=== PATIENT | female | born 1955 | race Two or more races ===

== ENCOUNTER 2023-07-09 16:41 | Inpatient (IN) | payer MEDICARE, MEDICAID ==
[~2023-07-09] VITALS: Ht 157.5 cm; Wt 71.1 kg
[2023-07-09 18:31] LABS: Basophils # (auto) 0.1 10 ^3/uL (0-0.2); Eosinophils # (auto) 0.7 10 ^3/uL (0-0.8); Hemoglobin 9.1 g/dL (12.2-16.2); Mean Corpuscular Hgb Conc. 32.4 g/dL (32.0-36.0); Monocytes # (auto) 0.9 10 ^3/uL (0-1.3); White Blood Cell 8.6 10^3/uL (4.4-10.8)
[2023-07-09 18:33] LABS: Basophils % (auto) 0.7 % (0.0-2.0); Eosinophils % (auto) 8.7 % (0.0-7.0); Hematocrit 28.1 % (36.0-46.0); Lymphocytes # (auto) 1.7 10 ^3/uL (0.4-5.4); Lymphocytes % (auto) 19.8 % (10.0-50.0); Mean Corpuscular Hemoglobin 26.8 pg (28.0-32.0); Mean Corpuscular Volume 82.7 fL (80.0-100.0); Monocytes % (auto) 10.2 % (0.0-12.0); Neutrophils # (auto) 5.2 10 ^3/uL (1.6-8.6); Neutrophils % (auto) 60.6 % (37.0-80.0); Nucleated Red Blood Cells % 0.1 %; Red Cell Distribution Width 15.6 % (11.8-14.3)
[2023-07-09 18:40] LABS: INR 1.11 (0.9-1.15); Prothrombin Time 11.6 sec (9.3-11.8)
[2023-07-09 18:43] LABS: Alanine Aminotransferase 14 U/L (7-40); Alkaline Phosphatase 176 U/L (46-116); Anion Gap 9 (5-15); Aspartate Aminotransferase 14 U/L (13-40); BUN/Creatinine Ratio 28.9 (10.0-20.0); Bilirubin, Total 0.7 mg/dL (0.2-1.0); Blood Urea Nitrogen 55 mg/dL (9-23); Calcium 8.9 mg/dL (8.7-10.4); Carbon Dioxide 27 mmol/L (20-30); Chloride 104 mmol/L (98-107); Glucose 151 mg/dL (74-106); Magnesium 2.4 mg/dL (1.6-2.6); Potassium 4.3 mmol/L (3.5-5.1); Sodium 140 mmol/L (136-145); Total Protein 6.8 g/dL (5.7-8.2)
[2023-07-09 19:42] LABS: Urine Bacteria NONE SEEN /hpf (None Seen); Urine Blood Negative /uL (Negative); Urine Clarity Clear (Clear); Urine Color Colorless (Yellow); Urine Hyaline Cast FEW /lpf (0 - 2); Urine Protein, UAD Negative (Negative); Urine Urobilinogen Normal (Negative); Urine WBC 29 /hpf (0 - 5)
[2023-07-09] MEDS ORDERED: AZITHROMYCIN 500MG/ 250ML 250 ML IV ONE (21:30)
[2023-07-09] MEDS ORDERED: FUROSEMIDE 40 MG/4 ML VIAL IV ONE (21:30)
[2023-07-09] MEDS ORDERED: NITROFURANTOIN 100 mg CAP PO ONE (21:30)
[2023-07-09] MEDS ORDERED: DEXTROSE (50%) 50ML SYRG IV PRN (22:15)
[2023-07-09] MEDS ORDERED: NITROGLYCERIN 0.4 MG SL TAB SL PRN (22:15)
[2023-07-09] MEDS ORDERED: ONDANSETRON HCL 4 MG/2 ML VIAL IV PRN (22:15)
[2023-07-09] MEDS ORDERED: MORPHINE SULFATE INJ 2 MG/ml SYRG IV PRN (22:15)
[2023-07-10] VITALS (9 sets, daily range): BP systolic 101–135; BP diastolic 49–67; PULSE 75–87; RESP 17–20; TEMP 37.1; O2SAT 95–100
[2023-07-10] MEDS: InsuLIN REG 1unit/0.01ml Soln (100units/ml) SC SCH ×4 (01:11→17:52)
[2023-07-10] MEDS: ACCU-CHEK COMFORT CURVE STRIP VI SCH ×4 (01:11→17:52)
[2023-07-10 06:18] LABS: Basophils # (auto) 0.1 10 ^3/uL (0-0.2); Hemoglobin 9.7 g/dL (12.2-16.2); Monocytes # (auto) 0.9 10 ^3/uL (0-1.3)
[2023-07-10 06:20] LABS: Basophils % (auto) 1.1 % (0.0-2.0); Eosinophils # (auto) 0.8 10 ^3/uL (0-0.8); Eosinophils % (auto) 8.4 % (0.0-7.0); Hematocrit 29.5 % (36.0-46.0); Lymphocytes # (auto) 1.8 10 ^3/uL (0.4-5.4); Lymphocytes % (auto) 20.4 % (10.0-50.0); Mean Corpuscular Hemoglobin 27.1 pg (28.0-32.0); Mean Corpuscular Volume 81.9 fL (80.0-100.0); Monocytes % (auto) 9.8 % (0.0-12.0); Neutrophils # (auto) 5.4 10 ^3/uL (1.6-8.6); Neutrophils % (auto) 60.3 % (37.0-80.0); Nucleated Red Blood Cells % 0.1 %
[2023-07-10 06:42] LABS: Alanine Aminotransferase 13 U/L (7-40); Albumin 4.3 g/dL (3.2-4.8); Alkaline Phosphatase 173 U/L (46-116); Anion Gap 10 (5-15); Aspartate Aminotransferase 13 U/L (13-40); BUN/Creatinine Ratio 23.9 (10.0-20.0); Bilirubin, Total 0.7 mg/dL (0.2-1.0); Calcium 9.3 mg/dL (8.5-10.1); Carbon Dioxide 27 mmol/L (20-30); Chloride 102 mmol/L (98-107); Glucose 139 mg/dL (74-106); Potassium 3.7 mmol/L (3.5-5.1); Sodium 139 mmol/L (136-145)
[2023-07-10 06:43] LABS: Total Protein 7.4 g/dL (5.7-8.2)
[2023-07-10 06:46] LABS: Blood Urea Nitrogen 45 mg/dL (9-23)
[2023-07-10] MEDS: cefTRIAXone 1GM/50ML D5W 50 ML IV SCH (06:57)
[2023-07-10] MEDS: FUROSEMIDE 20 MG/2 ML VIAL IV SCH ×2 (06:58→17:52)
[2023-07-10] MEDS: CLOPIDOGREL BISULFATE 75 MG TAB PO SCH (09:49)
[2023-07-10] MEDS: ATORVASTATIN 20 MG TAB PO SCH (21:44)
[2023-07-10] MEDS: ACETAMINOPHEN 325 MG TAB PO PRN (21:44)
[2023-07-10] MEDS ORDERED: AZITHROMYCIN 500MG/ 250ML 250 ML IV SCH (22:00)
[2023-07-11] VITALS (7 sets, daily range): BP systolic 116–125; BP diastolic 49–79; PULSE 66–87; RESP 16–18; TEMP 97.2–98.3; O2SAT 10–100
[2023-07-11] MEDS: FUROSEMIDE 20 MG/2 ML VIAL IV SCH ×2 (05:50→17:55)
[2023-07-11] MEDS: InsuLIN REG 1unit/0.01ml Soln (100units/ml) SC SCH ×4 (06:00→17:56)
[2023-07-11 06:46] LABS: Basophils # (auto) 0.1 10 ^3/uL (0-0.2); Eosinophils # (auto) 1.1 10 ^3/uL (0-0.8); Monocytes # (auto) 1.3 10 ^3/uL (0-1.3)
[2023-07-11 06:48] LABS: Chloride 107 mmol/L (98-107); Potassium 3.8 mmol/L (3.5-5.1); Sodium 141 mmol/L (136-145)
[2023-07-11 06:49] LABS: Anion Gap 9 (5-15); Calcium 8.9 mg/dL (8.5-10.1); Carbon Dioxide 25 mmol/L (20-30); Hematocrit 28.4 % (36.0-46.0); Hemoglobin 9.4 g/dL (12.2-16.2); Lymphocytes # (auto) 2.6 10 ^3/uL (0.4-5.4); Lymphocytes % (auto) 27.4 % (10.0-50.0); Mean Corpuscular Hemoglobin 27.2 pg (28.0-32.0); Mean Corpuscular Hgb Conc. 33.2 g/dL (32.0-36.0); Mean Corpuscular Volume 81.9 fL (80.0-100.0); Monocytes % (auto) 14.1 % (0.0-12.0); Neutrophils # (auto) 4.4 10 ^3/uL (1.6-8.6); Neutrophils % (auto) 46.5 % (37.0-80.0); Red Blood Cells 3.46 10^6/uL (4.0-5.20); Red Cell Distribution Width 15.7 % (11.8-14.3); White Blood Cell 9.5 10^3/uL (4.4-10.8)
[2023-07-11] MEDS: ACCU-CHEK COMFORT CURVE STRIP VI SCH ×4 (06:53→17:57)
[2023-07-11 06:54] LABS: BUN/Creatinine Ratio 24.7 (10.0-20.0); Blood Urea Nitrogen 41 mg/dL (9-23); Glucose 123 mg/dL (74-106); Triglycerides 120 mg/dL (< 150)
[2023-07-11 06:55] LABS: LDL Cholesterol 85 mg/dL (< 100)
[2023-07-11 06:56] LABS: Cholesterol 133 mg/dL (< 200); HDL Cholesterol 29 mg/dL (40-59)
[2023-07-11 07:35] LABS: % Iron Saturation 12.7 % (15-50)
[2023-07-11] MEDS: CLOPIDOGREL BISULFATE 75 MG TAB PO SCH (08:40)
[2023-07-11] MEDS: cefTRIAXone 1GM/50ML D5W 50 ML IV SCH (08:43)
[2023-07-11] MEDS ORDERED: FERROUS SULFATE 325mg EC TAB PO ONE (10:00)
[2023-07-11] MEDS ORDERED: ISO20T PO (15:52)
[2023-07-11] MEDS ORDERED: PANT40T PO (15:52)
[2023-07-11] MEDS ORDERED: FURO1TAB33 PO (15:52)
[2023-07-11] MEDS ORDERED: FURO40TA4 PO (15:52)
[2023-07-11] MEDS ORDERED: [UNRECOGNIZED DRUG - CODE] OP (15:52)
[2023-07-11] MEDS ORDERED: VERI2.5T PO (15:52)
[2023-07-11] MEDS ORDERED: INSLANTI SC (15:52)
[2023-07-11] MEDS ORDERED: PRED1SUS4 OP (15:52)
[2023-07-11] MEDS ORDERED: CAR3125T OR (15:52)
[2023-07-11] MEDS ORDERED: ASPI1TAB20 PO (15:52)
[2023-07-11] MEDS ORDERED: SACU1TAB PO (15:52)
[2023-07-11] MEDS ORDERED: CLOP75TA70 PO (15:52)
[2023-07-11] MEDS ORDERED: DAPA1TAB4 PO (15:53)
[2023-07-11] MEDS: FERROUS SULFATE 325mg EC TAB PO SCH (17:55)
[2023-07-11] MEDS: CARVEDILOL 3.125 MG TAB PO SCH (21:36)
[2023-07-11] MEDS: ATORVASTATIN 20 MG TAB PO SCH (21:37)
[2023-07-11] MEDS: SACUBITRIL-VALSARTAN 24mg/26mg TAB PO SCH (21:37)
[2023-07-12] VITALS (7 sets, daily range): BP systolic 110–126; BP diastolic 50–75; PULSE 67–75; RESP 16–18; TEMP 97.7–98.6; O2SAT 94–99
[2023-07-12] MEDS: InsuLIN REG 1unit/0.01ml Soln (100units/ml) SC SCH ×4 (01:56→18:04)
[2023-07-12] MEDS ORDERED: guaiFENesin-DM 100/10mg/5ml SYR PO PRN (03:00)
[2023-07-12 04:25] LABS: Creatinine, Urine 60.09 mg/dL (30.0-125.0)
[2023-07-12] MEDS: FUROSEMIDE 20 MG/2 ML VIAL IV SCH ×2 (06:18→17:54)
[2023-07-12] MEDS: ACCU-CHEK COMFORT CURVE STRIP VI SCH ×4 (06:18→17:56)
[2023-07-12 06:59] LABS: Anion Gap 9 (5-15); Carbon Dioxide 26 mmol/L (20-30); Chloride 105 mmol/L (98-107); Potassium 4.1 mmol/L (3.5-5.1); Sodium 140 mmol/L (136-145)
[2023-07-12 07:00] LABS: Calcium 8.9 mg/dL (8.5-10.1)
[2023-07-12 07:05] LABS: BUN/Creatinine Ratio 27.2 (10.0-20.0); Blood Urea Nitrogen 44 mg/dL (9-23); Glucose 126 mg/dL (74-106)
[2023-07-12] MEDS: cefTRIAXone 1GM/50ML D5W 50 ML IV SCH (09:13)
[2023-07-12] MEDS: FERROUS SULFATE 325mg EC TAB PO SCH ×2 (09:13→17:54)
[2023-07-12] MEDS: SACUBITRIL-VALSARTAN 24mg/26mg TAB PO SCH ×2 (09:16→22:36)
[2023-07-12] MEDS: CLOPIDOGREL BISULFATE 75 MG TAB PO SCH (09:17)
[2023-07-12] MEDS: CARVEDILOL 3.125 MG TAB PO SCH ×2 (09:18→22:37)
[2023-07-12] MEDS: ACETAMINOPHEN 325 MG TAB PO PRN (22:36)
[2023-07-12] MEDS: ATORVASTATIN 20 MG TAB PO SCH (22:36)
[2023-07-13] MEDS: ACCU-CHEK COMFORT CURVE STRIP VI SCH ×4 (00:56→17:44)
[2023-07-13] MEDS: InsuLIN REG 1unit/0.01ml Soln (100units/ml) SC SCH ×4 (01:01→17:58)
[2023-07-13 05:00] VITALS: BP 97/50; PULSE 68; RESP 16; TEMP 98; O2SAT 98
[2023-07-13] MEDS: FUROSEMIDE 20 MG/2 ML VIAL IV SCH ×2 (06:00→17:54)
[2023-07-13 08:00] VITALS: PULSE 77
[2023-07-13 09:00] VITALS: BP 106/44; PULSE 73; RESP 17; TEMP 97.8; O2SAT 99
[2023-07-13] MEDS: cefTRIAXone 1GM/50ML D5W 50 ML IV SCH (09:25)
[2023-07-13] MEDS: FERROUS SULFATE 325mg EC TAB PO SCH ×2 (09:25→17:58)
[2023-07-13] MEDS: CARVEDILOL 3.125 MG TAB PO SCH (09:28)
[2023-07-13] MEDS: CLOPIDOGREL BISULFATE 75 MG TAB PO SCH (09:28)
[2023-07-13] MEDS: SACUBITRIL-VALSARTAN 24mg/26mg TAB PO SCH (11:55)
[2023-07-13 13:00] VITALS: BP 114/61; PULSE 72; RESP 18; TEMP 97.8; O2SAT 100
[2023-07-13 14:39] LABS: Chloride 102 mmol/L (98-107); Potassium 5.4 mmol/L (3.5-5.1); Sodium 136 mmol/L (136-145)
[2023-07-13 14:40] LABS: Anion Gap 8 (5-15); Carbon Dioxide 26 mmol/L (20-30)
[2023-07-13 14:41] LABS: Calcium 8.7 mg/dL (8.7-10.4)
[2023-07-13 14:46] LABS: Glucose 181 mg/dL (74-106)
[2023-07-13 14:47] LABS: BUN/Creatinine Ratio 32.8 (10.0-20.0); Blood Urea Nitrogen 61 mg/dL (9-23)
[2023-07-13 17:00] VITALS: BP 122/65; PULSE 72; RESP 16; TEMP 97.9; O2SAT 99
== END 2023-07-13 18:55 | disposition home or self-care (01) | DRG 291 ==
LOC: ER 16:41 → TELE 22:11 → TELE-WESTW 07-10 04:54
PROVIDERS: ADMIT Nurse Practitioner; ATTEND Internal Medicine
DX: I13.0 Hypertensive heart and chronic kidney disease with heart failure and stage 1 through stage 4 chronic kidney disease, or unspecified chronic kidney disease (principal); I50.43 Acute on chronic combined systolic (congestive) and diastolic (congestive) heart failure; J96.21 Acute and chronic respiratory failure with hypoxia; N39.0 Urinary tract infection, site not specified; I25.10 Atherosclerotic heart disease of native coronary artery without angina pectoris; N26.1 Atrophy of kidney (terminal); M54.50 Low back pain, unspecified; D50.9 Iron deficiency anemia, unspecified; N18.32 Chronic kidney disease, stage 3b; E11.22 Type 2 diabetes mellitus with diabetic chronic kidney disease; I95.9 Hypotension, unspecified; J45.909 Unspecified asthma, uncomplicated; E66.9 Obesity, unspecified; Z68.28 Body mass index [BMI] 28.0-28.9, adult; I25.2 Old myocardial infarction
CPT/HCPCS: 36415; 71045; 72100; 76775; 80048; 80053; 80061; 81001; 82570; 82728; 82962; 83036; 83540; 83550; 83735; 83880; 84156; 84300; 84484; 85025; 85610; 85730; 87086; 93005; 93306; 97163; G0378; J1815